=== PATIENT | male | born 1985 | race Caucasian/White ===

== ENCOUNTER 2020-09-12 22:46 | Emergency (ER) | payer BC ==
[~2020-09-12] VITALS: Ht 185.4 cm; Wt 77.1 kg
--- NOTE | 2020-09-12 22:49 | NUR ---
PT [facility] BLS. TAKEN TO BED 2
[2020-09-12 23:15] VITALS: BP 132/80
--- NOTE | 2020-09-12 23:15 | NUR ---
35 Y/O BIBA C/O DIZZINESS. PER PT, "I WAS WORKING OUT WHEN I SUDDENLY FELT SUPER DIZZY AND WEAK, AND FELT REALLY COLD. MY NEIGHBOR GAVE ME 2 GLUCOSE PILLS KATT PEREZ THOUGHT MY BLOOD SUGAR WAS LOW." DENIES ANY V/D. A&0X4. GCS 15. DENIES PAIN. STEADY GAIT. ERMD MADE AWARE PMH: ISIONYPHILLIC ESOPHAGITIS ALLERGIES: NUTS, WHEAR, DAIRY
[2020-09-13] MEDS ORDERED: NACL 0.9% 1,000 ML IV ONE (00:05)
--- NOTE | 2020-09-13 01:00 | NUR ---
Dr. Silva examining patient.
[2020-09-13 01:10] LABS: BASOPHILS % (AUTO) 0.3 % (0.0-2.0); EOSINOPHILS # (AUTO) 0.1 K/uL (0-0.4); EOSINOPHILS % (AUTO) 0.8 % (0.0-4.0); HEMOGLOBIN 13.9 g/dL (12.0-18.0); LYMPHOCYTES # (AUTO) 1.6 K/uL (2.0-11.5); LYMPHOCYTES % (AUTO) 20.1 % (20.5-51.1); MEAN CORPUSCULAR HEMOGLOBIN 30 pg (27-31); MEAN CORPUSCULAR HGB CONC 34 g/dL (33-37); MEAN CORPUSCULAR VOLUME 88.6 fL (80-94); MONOCYTES # (AUTO) 0.5 K/uL (0.8-1.0); MONOCYTES % (AUTO) 6.6 % (1.7-9.3); NEUTROPHILS # (AUTO) 5.9 K/uL (1.8-7.7); NEUTROPHILS % (AUTO) 72.2 % (42.2-75.2); PLATELET COUNT (AUTO) 167 K/uL (140-450); RED BLOOD CELL COUNT(AUTO) 4.63 MIL/uL (4.20-6.10); RED CELL DISTRIBUTION WIDTH 12.6 % (11.6-13.7); WHITE BLOOD COUNT (AUTO) 8.1 K/uL (4.8-10.8)
[2020-09-13 01:13] LABS: ANION GAP 14.4 (8-16); CARBON DIOXIDE 20.6 mmol/L (21-32); CREATININE 0.8 mg/dL (0.6-1.3)
[2020-09-13] MEDS ORDERED: POTASSIUM CHLORIDE 10 MEQ TABER PO ONE (01:25)
[2020-09-13 02:40] VITALS: BP 138/82
--- NOTE | 2020-09-13 02:40 | NUR ---
Patient discharged with v/s stable. Written and verbal after care instructions given and explained. Patient verbalized understanding. Ambulatory with to car. All questions addressed prior to discharge. Advised to follow up with PMD.
== END 2020-09-13 02:40 | disposition home or self-care (01) ==
LOC: MED 22:46
DX: E87.6 Hypokalemia (principal); R42 Dizziness and giddiness; Z91.018 Allergy to other foods
CPT/HCPCS: 36415; 80048; 85025; 96360; 99283; J7030

== ENCOUNTER 2021-03-15 22:19 | Inpatient (IN) | payer BC, SELFPAY ==
[~2021-03-15] VITALS: Ht 182.9 cm; Wt 80.3 kg
[2021-03-15 22:58] VITALS: BP 142/76
[2021-03-15] MEDS ORDERED: MORPHINE SULFATE 4 MG/ML SYR IVP ONE (23:10)
[2021-03-15] MEDS ORDERED: PANTOPRAZOLE 40 MG INJ VIAL IVP ONE (23:10)
--- NOTE | 2021-03-15 23:10 | NUR ---
PT TAKEN TO BED 03.
[2021-03-15 23:42] LABS: BASOPHILS % (AUTO) 0.2 % (0.0-2.0); EOSINOPHILS % (AUTO) 0.4 % (0.0-4.0); HEMATOCRIT 42.4 % (36-52); HEMOGLOBIN 14.6 g/dL (12.0-18.0); LYMPHOCYTES # (AUTO) 1.8 K/uL (2.0-11.5); MEAN CORPUSCULAR HEMOGLOBIN 29 pg (27-31); MEAN CORPUSCULAR HGB CONC 34 g/dL (33-37); MEAN CORPUSCULAR VOLUME 85.7 fL (80-94); MONOCYTES # (AUTO) 0.6 K/uL (0.8-1.0); MONOCYTES % (AUTO) 6.5 % (1.7-9.3); NEUTROPHILS # (AUTO) 6.2 K/uL (1.8-7.7); NEUTROPHILS % (AUTO) 71.9 % (42.2-75.2); PLATELET COUNT (AUTO) 185 K/uL (140-450); RED BLOOD CELL COUNT(AUTO) 4.95 MIL/uL (4.20-6.10); RED CELL DISTRIBUTION WIDTH 12.7 % (11.6-13.7); WHITE BLOOD COUNT (AUTO) 8.6 K/uL (4.8-10.8)
[2021-03-16 00:26] LABS: ALBUMIN 4.2 g/dL (3.4-5.0); ANION GAP 12.8 (8-16); CARBON DIOXIDE 28.6 mmol/L (21-32); CREATININE 0.8 mg/dL (0.6-1.3); POTASSIUM 3.4 mmol/L (3.5-5.1); TOTAL BILIRUBIN 0.3 mg/dL (0.0-1.0)
[2021-03-16] MEDS ORDERED: MORPHINE SULFATE 4 MG/ML SYR IVP ONE (01:10)
[2021-03-16] MEDS ORDERED: NACL 0.9% 1,000 ML IV SCH (05:40)
--- NOTE | 2021-03-16 05:43 | NUR ---
PATIENT ALERT ORIENT NOT COMPLAINING OF PAIN AT THIS TIME WENT TO THE BATHROOM AND ASYING THAT THE MORPHINE HELP HIM WITH HIS PAIN //DiCaprio RN
--- NOTE | 2021-03-16 07:25 | NUR ---
PATIENT HAS BEEN SCREENED AND CATEGORIZED LOW NUTRITION RISK. PATIENT WILL BE SEEN WITHIN 7 DAYS OF ADMISSION. 03/24/21 ROSITA COBOS MS, RDN
--- NOTE | 2021-03-16 07:25 | NUR ---
Report and continuation of care received from EARLINE Jiménez.
--- NOTE | 2021-03-16 07:45 | NUR ---
Dr. Pelaez is evaluating patient at bedside
[2021-03-16] MEDS ORDERED: PANTOPRAZOLE 40 MG INJ VIAL IVP SCH (09:00)
--- NOTE | 2021-03-16 10:40 | NUR ---
Patient resting in position of comfort. Phone charging at nurses station per request. All pt needs met.
--- NOTE | 2021-03-16 10:43 | NUR ---
Spoke with Shivani (), provided status update.
--- NOTE | 2021-03-16 11:35 | NUR ---
Dr. Daniels is evaluating patient at bedside
[2021-03-16] MEDS ORDERED: PANT40EC PO (12:28)
[2021-03-16 12:43] VITALS: BP 128/80
[2021-03-16 12:45] VITALS: BP 128/80
--- NOTE | 2021-03-16 12:50 | NUR ---
Dr. Pelaez is reevaluating pt at bedside
--- NOTE | 2021-03-16 12:58 | NUR ---
Patient cleared for discharge by Dr. Daniels as inpatient Telemetry hold. Patient given discharge instructions. IV removed; patient acknowledged understanding of medication sent to pharmacy electronically. All questions answered.
== END 2021-03-16 12:58 | disposition home or self-care (01) | DRG 392 ==
LOC: MED 22:19 → MTU 03-16 05:57
DX: K20.0 Eosinophilic esophagitis (principal); K21.9 Gastro-esophageal reflux disease without esophagitis; E87.6 Hypokalemia; Z20.822 Contact with and (suspected) exposure to COVID-19; Z91.011 Allergy to milk products; Z91.018 Allergy to other foods; Z91.09 Other allergy status, other than to drugs and biological substances; Z79.899 Other long term (current) drug therapy
CPT/HCPCS: 36415; 80053; 83690; 85025; 96374; 96375; 96376; 99285; C9113; J2270